=== PATIENT | male | born 1975 | race Caucasian/White ===

== ENCOUNTER → 2021-09-26 11:10 | Outpatient (CLI) | payer OTHER, SELFPAY ==
--- NOTE | 2021-09-26 | DI.RAD.S_ITS ---
PROCEDURE: XR LUMBAR SPINE 2-3V INDICATIONS: ACUTE BACK INJURY TECHNIQUE: 2 views of the lumbar spine were acquired. COMPARISON: None. FINDINGS: Bones: 5 [id number] vertebrae are present. There is normal bony alignment. No vertebral body compression fractures. No suspicious bony lesions. Mild degenerative joint disease at L3-L4 and L4-L5. Soft tissues: Overlying bowel gas pattern is normal. No suspicious soft tissue calcifications. IMPRESSION: 1. No fracture. 2. 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 Dictated by: Nancie Barragan M.D. on 09/26/2021 at 13:33 Approved by: Nancie Barragan M.D. on 09/26/2021 at 13:37
== END ==
PROVIDERS: Family Provider Family Medicine; PCP Student in an Organized Health Care Education/Training Program; Referring Provider Family Medicine; Visit Provider Family Medicine
DX: S39.92XA Unspecified injury of lower back, initial encounter (principal); M54.50 Low back pain, unspecified; X58.XXXA Exposure to other specified factors, initial encounter
CPT/HCPCS: 72100

== ENCOUNTER → 2021-12-01 18:02 | Outpatient (CLI) | payer OTHER, SELFPAY ==
--- NOTE | 2021-12-01 18:06 | DI.MRI.S_ITS ---
PROCEDURE: MR LUMBAR SPINE WO CON INDICATIONS: LOW BACK PAIN TECHNIQUE: Noncontrast sagittal T1 spin echo and T2 fast echo, sagittal STIR, axial T1 and T2 fast spin echo through the lumbar spine. In cases with scoliosis, additional coronal T2 fast spin echo may be performed. COMPARISON: [facility], CR, XR LUMBAR SPINE 2-3V, 09/26/2021, 11:10. FINDINGS: Image quality: Excellent. Alignment and Curvature: There is normal bony alignment. Bone Marrow: Marrow is of normal overall signal. No acute vertebral body compression fractures. Spinal Cord: Conus medullaris terminates at the L1-L2 level. Visualized cord demonstrates normal signal and size. Paraspinous Soft Tissues: No paravertebral masses. T12-L1: No canal stenosis or foraminal stenosis. L1-L2: No canal stenosis or foraminal stenosis. L2-L3: No canal stenosis or foraminal stenosis. L3-L4: Disc bulge. Facet hypertrophy. No significant canal stenosis. [id number] right foraminal narrowing. Moderate left foraminal narrowing with mild flattening deformity on the exiting left L3 nerve root. L4-L5: There is a free disc fragment which has migrated superiorly in the right lateral recess measuring 0.9 x 1.2 x 0.9 cm, impinging on the exiting right L4 nerve root. Reference image 9/2 and image 24/5, T2 sagittal and T2 axial images. Diffuse disc bulge. No central canal stenosis. Moderate right foraminal narrowing with flattening deformity on the exiting right L4 nerve root. Left foramen is patent. L5-S1: Left paracentral annulus tear. Diffuse posterior disc bulge, eccentric to the left, abutting the left S1 nerve root in the left lateral recess. Mild facet arthropathy. No central canal stenosis. Mild right foraminal stenosis. Moderate left foraminal stenosis with flattening deformity on the exiting left L5 nerve root. IMPRESSION: 1. At L4-L5, there is a free disc fragment which has migrated superiorly in the right lateral recess, impinging on the exiting right L4 nerve root. 2. At L5-S1 there is a left paracentral annulus tear with disc bulge abutting the left S1 nerve root in the left lateral recess. 3. Multilevel foraminal narrowing as described above. All Dictated by: Abdullahi Strickland M.D. on 12/01/2021 at 20:29 Approved by: Abdullahi Strickland M.D. on 12/01/2021 at 20:35
== END ==
PROVIDERS: Family Provider Family Medicine; PCP Student in an Organized Health Care Education/Training Program; Referring Provider Student in an Organized Health Care Education/Training Program; Visit Provider Student in an Organized Health Care Education/Training Program
DX: S39.012D Strain of muscle, fascia and tendon of lower back, subsequent encounter (principal); M51.27 Other intervertebral disc displacement, lumbosacral region; M51.26 Other intervertebral disc displacement, lumbar region; M48.061 Spinal stenosis, lumbar region without neurogenic claudication; M48.07 Spinal stenosis, lumbosacral region
CPT/HCPCS: 72148

== ENCOUNTER → 2021-12-14 13:13 | Outpatient (CLI) | payer OTHER, SELFPAY ==
--- NOTE | 2021-12-14 13:15 | DI.RAD.S_ITS ---
PROCEDURE: XR CHEST 2V INDICATIONS: CHEST PAIN TECHNIQUE: 2 views of the chest were acquired. COMPARISON: None. FINDINGS: Surgical changes and devices: None. Lungs and pleura: Lungs are clear. No pleural effusions or pneumothorax. Mediastinum: Mediastinal contours are normal. Heart size is normal. Bones and chest wall: No suspicious bony abnormalities. Soft tissues appear unremarkable. IMPRESSION: No acute cardiopulmonary findings. Dictated by: Donna Chan M.D. on 12/14/2021 at 15:14 Approved by: Donna Chan M.D. on 12/14/2021 at 15:14
== END ==
PROVIDERS: Family Provider Family Medicine; PCP Student in an Organized Health Care Education/Training Program; Referring Provider Student in an Organized Health Care Education/Training Program; Visit Provider Student in an Organized Health Care Education/Training Program
DX: R07.9 Chest pain, unspecified (principal)
CPT/HCPCS: 71046

== ENCOUNTER → 2023-09-25 09:40 | Outpatient (CLI) | payer OTHER, SELFPAY ==
--- NOTE | 2023-09-25 09:44 | DI.RAD.S_ITS ---
PROCEDURE: XR RIBS LT MIN 3V W CXR1V INDICATIONS: rib pain, low back pain w/sciatica, fall from ladder TECHNIQUE: 2 views of the left ribs were acquired, along with a single view chest. COMPARISON: None. FINDINGS: Surgical changes and devices: None. Bones and chest wall: No displaced fracture or dislocation. Lungs and pleura: No dense consolidation or pleural effusion. Mediastinum: Normal heart size IMPRESSION: No acute radiographic abnormality. If there is high concern for occult injury, consider repeat radiography or cross-sectional imaging. Dictated by: Chris Berger M.D. on 09/25/2023 at 12:49 Approved by: Chris Berger M.D. on 09/25/2023 at 12:50
--- NOTE | 2023-09-25 09:44 | DI.RAD.S_ITS ---
PROCEDURE: XR LUMBAR SPINE 2-3V INDICATIONS: rib pain, low back pain w/sciatica, fall from ladder TECHNIQUE: 2 views of the lumbar spine were acquired. COMPARISON: [facility], , XR LUMBAR SPINE 2-3V, 09/26/2021, 11:10. FINDINGS: Bones: There are mild degenerative changes of the lumbar spine. Trace retrolisthesis of L5 on S1 again seen. No acute vertebral body height loss or traumatic subluxation. Soft tissues: Moderate to large fecal loading. No suspicious calcifications. IMPRESSION: Mild degenerative changes. No acute radiographic abnormality. If there is high concern for further derangement, consider MRI evaluation. Dictated by: hCris Berger M.D. on 09/25/2023 at 12:52 Approved by: Chris Berger M.D. on 09/25/2023 at 12:52
== END ==
PROVIDERS: Family Provider Family Medicine; PCP Family Medicine; Referring Provider Internal Medicine; Visit Provider Internal Medicine
DX: M54.41 Lumbago with sciatica, right side (principal); M47.816 Spondylosis without myelopathy or radiculopathy, lumbar region; R07.81 Pleurodynia
CPT/HCPCS: 71101; 72100